=== PATIENT | female | born 1990 | race Caucasian/White ===

== ENCOUNTER 2016-10-06 21:24 | Emergency (ER) | payer BC, OTHER ==
[2016-10-06 21:38] VITALS: RESP 18; TEMP 98
[2016-10-06] MEDS ORDERED: DEXAMETHASONE PF 10 MG/1 ML VIAL IV ONE (21:45)
[2016-10-06] MEDS ORDERED: diphenhydrAMINE 50 MG/1 ML VIAL IVP ONE (21:45)
[2016-10-06] MEDS ORDERED: Famotidine Inj 20 MG in Normal Saline Flush 10 ML IVP ONE (21:45)
[2016-10-06] MEDS ORDERED: Sodium Chloride 0.9% 1,000 ML PRIMARY IV ONE (21:45)
--- NOTE | 2016-10-06 21:52 | PDOC ---
Skin Rash/Insect/Abscess HPI - General Chief Complaint: Integumentary Stated Complaint: RASH Date Seen by Provider: 10/06/16 Time Seen by Provider: 21:47 Source: POSITIVE: Patient Exam Limitations: POSITIVE: No limitations Nurse's Notes Reviewed & Considered: Yes - History of Present Illness Initial Comments: This pleasant 25-year-old female comes in today with a chief complaint of rash. Yesterday patient developed some pain and mild redness on the fifth toe of her left foot. Today she now has erythema streaking up to just proximal of left ankle along what appears to be lymph drainage pattern. Then today after work she developed a sandpaper like rash on her forearms that has now spread to her abdomen, upper torso, and bilateral groins. This evening the rash spread to her bilateral cheeks. She denies any headache, sore throat, no chest pain or shortness of breath, no abdominal pain, no nausea vomiting or diarrhea, no hematuria or dysuria. Have you received a tetanus shot in the past 10 years?: Unknown Body Location Affected: REPORTS: Upper Extremity (L), Upper Extremity (R), Face , Chest, Abdomen Timing: REPORTS: Abrupt Duration: 4-6 hours Severity: Moderate Quality: REPORTS: Itching Identified Causes: REPORTS: No When Exposed: REPORTS: Just Prior to Sx Onset Where Exposed: REPORTS: Home Suspected Etiology: REPORTS: Other (Unknown etiology) Similar Symptoms Previously: No Recent Care Received: REPORTS: Denies Any Prior Injuries Related to Current Complaint?: No - Patient Home Medications Home Medications: Home Medications Levonorgestrel [Mirena] 1 each IY ONCE 07/21/12 - Patient Allergies Allergies/Adverse Reactions: Allergies Allergy/AdvReac Type Severity Reaction Status Date / Time codeine [Codeine] Allergy Intermediate SWELLING Verified 10/06/16 21:29 Past Medical History - heen HEENT History: Denies History Cardiovascular History: Other (please comment) Additional Cardiovasular History: FREQUENT NEAR SYNCOPAL EPISODES/DIZZINESS Respiratory History: Shortness of Breath Additional Respiratory History: SOB starting 04/28/16 Gastrointestinal History: Denies History Genitourinary History: Recurrent UTI Additional Genitourinary History: Patient gets occasional UTI Endocrine History: Denies History Musculoskeletal History: Denies History Prosthesis or Implant: No Neurological History: Migraines Additional Neurological History: occasional migraines Blood Disorders: Denies History Additional Blood Disorders History: low Iron per patients mom Psychiatric History: Depression Additional Psychiatric History: Not medicated for depression History of Sexually Transmitted Diseases: No Obstetrical History: Denies History Cancer History: Denies History In Past Year Been Physically Harmed or Verbally Threatened: No History of MDRO: No History of Other Communicable Diseases: No Tobacco Use: Current Every Day Smoker Alcohol Use: Occasionally Substance Use Type: Marijuana, Other (please comment) Previous Surgical History: No Anesthesia Reactions: No Malignant Hyperthermia: No Significant Family History: Cancer, Diabetes, Hypertension ROS - Limitations ROS Limitations: No Limitations Constitution: REPORTS: Denies Symptoms Cardiovascular: REPORTS: Denies Cardiac Symptoms Respiratory: REPORTS: Denies Resp Symptoms Neurological: REPORTS: Denies Neuro Symptoms Gastrointestinal: REPORTS: Denies GI Symptoms Endocrine: REPORTS: Denies Symptoms Musculoskeletal: REPORTS: Denies MS Symptoms Genitourinary: REPORTS: Denies Symptoms Eyes: REPORTS: Denies Symptoms ENT: REPORTS: Denies Symptoms Skin: REPORTS: Rash Lympathic: REPORTS: Denies Lympathic Symptoms Immunologic: POSITIVE: Denies Symptoms Psychiatric: POSITIVE: Denies Psych Symptoms Skin Rash/Insect/Abscess Exam - General Appearance General Appearance: REPORTS: Alert, Cooperative, No Acute Distress, No Evidence of Trauma - Skin Skin: REPORTS: Warm, Dry, Normal Color, Skin Rash (Sandpaper like rash on extremities, abdomen, upper torso, and face.) Skin Location: REPORTS: Generalized Skin Character: REPORTS: Symmetric, Fine Skin Symptoms: REPORTS: Rough Texture, Sand Paper - Like - Extremities Extremity: Non-Tender: (All Extremities), Normal ROM: (All Extremities), Normal Inspection: (All Extremities), Pelvis Stable: (All Extremities), Signs / Symptoms of Infection Present: (LLE) (lymph angina present fifth toe proximally to ankle) - HEENT HEENT: POSITIVE: Head Inspection Nml, Eyes Inspection Nml, Ears Inspection Nml, Nose Inspection Nml, PERRL, EOMI - Neck Neck: REPORTS: Trachea Midline, No Swelling - Respiratory Respiratory: REPORTS: No Respiratory Distress, Breath Sounds Normal - Cardiovascular Cardiovascular: REPORTS: Regular Rate and Rhythm, Heart Sounds Normal - Abdomen Abdomen: Soft: (All Quadrants), Normal Bowel Sounds: (All Quadrants), Denies Tenderness: (All Quadrants) - Neurological / Psychological Neurological: REPORTS: Affect Apporpriate, Oriented X3, Motor Normal, Sensation Normal Procedures - Laceration/Wound Repair Did patient have a laceration repair: No Skin Rash/Abscess Progress - Results Reviewed by me Labs Normal Except for:: Abnormal Lab Results: Entire Visit 10/06/16 Range/Units 21:51 WBC 11.38 H (4.8-10.8) 10^3/uL [place] # (Auto) 1.14 H (0.3-0.8) 10*3/UL Potassium 3.6 L (3.8-5.2) meq/L BUN/Creatinine Ratio 21.25 H (6-20) Glucose 115 H (78-110) mg/dL Lab Results Reviewed: Yes - Patient's Progress Re-Examine Time:: 23:17 Status: POSITIVE: Improved MDM / ED Course: Patient was examined, an IV started, blood drawn and sent to the lab for studies. Patient received normal saline, Benadryl, Pepcid, dexamethasone, and Ancef. Findings: CBC shows white count of 11. Comprehensive metabolic panel is within normal limits, CRP is normal, urinalysis is negative. Assessment: #1 lymph angina. #2 sandpaperlike rash that appears to be folliculitis. Next Plan: Discharge home, Keflex for 7 days, mupirocin for her rash. Follow-up with primary care physician. Return to the emergency room if increasing signs or symptoms, fevers. - Consult Counseled: POSITIVE: Patient, Family, RE: Lab Results, RE: DX, RE: Need for F/U Patient Care Time - Estimated PCT Patient Care Time (In Minutes): 25 Vital Signs - Recent Vital Signs Vital Signs: Vital Signs (Last 8 hours) Temp Pulse Resp BP Pulse Ox 10/06/16 21:25 98.0 F 84 18 125/75 95 - VS Reviewed Vital Signs Reviewed: Yes Discharge Clinical Impression: Cellulitis, Folliculitis Discharge Disposition: Discharged to Home Condition: Stable Patient Instructions Given at Discharge: Cellulitis (ED), Folliculitis (ED)
[2016-10-06 21:55] LABS: BASOPHILS # (AUTO) 0.07 10*3/UL; BASOPHILS % (AUTO) 0.6 % (0-1); EOSINOPHILS # (AUTO) 0.37 10*3/UL; EOSINOPHILS % (AUTO) 3.3 % (0-8); HEMATOCRIT 39.6 % (37.0-47.0); HEMOGLOBIN 13.6 g/dL (12.0-16.0); LYMPHOCYTES # (AUTO) 2.88 10*3/uL; MEAN CORPUSCULAR HEMOGLOBIN 30.5 PG (27-31); MEAN CORPUSCULAR HGB CONC 34.3 g/dL (33-37); MEAN CORPUSCULAR VOLUME 88.8 FL (81-99); MEAN PLATELET VOLUME 8.3 FL (7.4-12.2); MONOCYTES # (AUTO) 1.14 10*3/UL (0.3-0.8); NEUTROPHILS # (AUTO) 6.89 10*3/UL; NEUTROPHILS % (AUTO) 60.5 % (50-80); RED BLOOD COUNT 4.46 10^6/uL (4.20-5.40)
[2016-10-06 21:56] LABS: PLATELET MORPHOLOGY COMMENT NORMAL MORPHOLOGY (NORM); RBC MORPHOLOGY COMMENT NORMAL MORPHOLOGY (NORM); WBC MORPHOLOGY COMMENT NORMAL MORPHOLOGY (NORM)
[2016-10-06 22:07] LABS: BLOOD UREA NITROGEN 17 mg/dL (7-22); BUN/CREATININE RATIO 21.25 (6-20); CALCIUM 8.8 mg/dL (8.7-10.7); EST GLOMERULAR FILTRATION > 60 (>60 ml/min/1.73m(2)); SERUM ALBUMIN 3.9 g/dL (3.5-4.8)
[2016-10-06 22:12] LABS: C-REACTIVE PROTEIN < 0.5 mg/dL (0.0-0.9)
[2016-10-06 22:53] LABS: BILIRUBIN,URINE NEGATIVE (NEG); CLARITY,URINE CLEAR (CLEAR); COLOR,URINE YELLOW; GLUCOSE, URINE (UA) NEGATIVE (NEG); NITRATE,URINE NEGATIVE (NEG); OCCULT BLOOD,URINE NEGATIVE (NEG); PH,URINE 6.5 (5.0-8.5); PROTEIN,URINE NEGATIVE (NEG)
[2016-10-06 22:54] LABS: URINE SAMPLE TYPE CLEAN CATCH URINE
[2016-10-06] MEDS ORDERED: ceFAZolin Inj 2gm (Premix) 2 GM in Dextrose 1 BAG IV ONE (23:09)
[2016-10-06] MEDS ORDERED: Mupirocin Ointment 2% 22 gm Tube TOPICAL ONE (23:12)
== END 2016-10-07 00:08 | disposition home or self-care (01) ==
LOC: ER 21:24
DX: L03.032 Cellulitis of left toe (principal); L73.8 Other specified follicular disorders
CPT/HCPCS: 80053; 81003; 85025; 86140; 96365; 96375; 99283 ×2; J0690; J1200; J1100; J7030